=== PATIENT | female | born 1990 | race Caucasian/White ===

== ENCOUNTER 2018-05-02 15:28 | Emergency (ER) | payer BC ==
[~2018-05-02] VITALS: Ht 162.6 cm; Wt 58.6 kg
[2018-05-02 15:34] VITALS: Ht 162.6 cm; Wt 58.6 kg
[2018-05-02 17:14] LABS: BASOPHIL % 0.8 % (0-2); PLATELET COUNT 242 x10^3mcL (130-400); RED CELL DISTRIBUTION WIDTH 14.1 % (11.5-14.5)
[2018-05-02 17:21] LABS: CALCIUM 10.1 mg/dL (8.5-10.1); CARBON DIOXIDE 29.1 mmol/L (21-32); CHLORIDE SERUM 106 mmol/L (98-107); CREATININE SERUM 0.8 mg/dL (0.6-1.0); GFR1 > 60 mL/min; GLUCOSE SERUM 93 mg/dL (74-106); POTASSIUM SERUM 3.7 mmol/L (3.5-5.1); SODIUM SERUM 141 mmol/L (136-145)
[2018-05-02 17:25] LABS: ALKALINE PHOSPHATASE 138 U/L (46-116); ALT/SGPT 81 U/L (14-59); AST/SGOT 51 U/L (15-37); BILIRUBIN TOTAL 0.27 mg/dL (0.20-1.00); LIPASE 150 IU/L (73-393); TOTAL PROTEIN, SERUM 6.8 g/dL (6.4-8.2)
[2018-05-02 17:26] LABS: ALBUMIN 2.9 g/dL (3.4-5.0)
[2018-05-02 19:15] VITALS: BP 105/64
== END 2018-05-02 19:30 | disposition home or self-care (01) ==
LOC: ED 15:28
PROVIDERS: Emergency Medicine
DX: K20.9 Esophagitis, unspecified (principal)
CPT/HCPCS: 36415; Q0092

== ENCOUNTER 2020-07-21 20:12 | Emergency (ER) | payer BC ==
[~2020-07-21] VITALS: Ht 160 cm; Wt 62.6 kg
[2020-07-21 20:25] VITALS: Ht 160 cm; Wt 62.6 kg
[2020-07-21 21:20] LABS: microscopic required? NO
[2020-07-21 21:29] LABS: UA SPECIFIC GRAVITY <=1.005 (1.005-1.035); urine erythrocyte NEGATIVE (NEGATIVE)
[2020-07-21 21:29] LABS: BASOPHIL % 0.3 % (0-2)
[2020-07-21 21:34] LABS: PLATELET COUNT 94 x10^3mcL (130-400)
[2020-07-21 21:39] LABS: CALCIUM 10.3 mg/dL (8.5-10.1); CARBON DIOXIDE 28.7 mmol/L (21-32); CHLORIDE SERUM 102 mmol/L (98-107); CREATININE SERUM 0.9 mg/dL (0.6-1.0); GFR1 > 60 mL/min; GLUCOSE SERUM 143 mg/dL (74-106); POTASSIUM SERUM 3.5 mmol/L (3.5-5.1); SODIUM SERUM 136 mmol/L (136-145)
[2020-07-21 21:44] LABS: ALKALINE PHOSPHATASE 200 U/L (46-116); ALT/SGPT 88 U/L (14-59); AST/SGOT 36 U/L (15-37); BILIRUBIN TOTAL 1.05 mg/dL (0.20-1.00); LACTIC DEHYDROGENASE (LDH) 121 U/L (100-190); TOTAL PROTEIN, SERUM 6.6 g/dL (6.4-8.2)
[2020-07-21 21:47] LABS: ALBUMIN 2.8 g/dL (3.4-5.0)
[2020-07-21 22:06] LABS: C REACTIVE PROTEIN 16.8 mg/dL (<=0.9)
[2020-07-22 00:19] VITALS: BP 108/71
== END 2020-07-22 00:19 | disposition home or self-care (01) ==
LOC: ED 20:12
PROVIDERS: Emergency Medicine
DX: B34.9 Viral infection, unspecified (principal); Z88.2 Allergy status to sulfonamides; Z88.1 Allergy status to other antibiotic agents; Z20.828 Contact with and (suspected) exposure to other viral communicable diseases
CPT/HCPCS: 83880; 85378; 87804; J7030; Q0092; U0003-CS